=== PATIENT | female | born 1960 | race Two or more races ===

== ENCOUNTER 2024-11-03 11:15 | Emergency (ER) | payer OTHER ==
[~2024-11-03] VITALS: Ht 165.1 cm; Wt 70.8 kg
[2024-11-03] MEDS ORDERED: ORPHENADRINE CITRATE 30 MG/ML AMPUL IM ONE (13:00)
[2024-11-03] MEDS ORDERED: KETOROLAC TROMETHAMINE 60 MG VIAL IM ONE (13:00)
[2024-11-03] MEDS ORDERED: NORFLEX100MG PO (14:00)
== END 2024-11-03 14:44 | disposition home or self-care (01) ==
LOC: ER 14:27
DX: R07.81 Pleurodynia (principal); E11.9 Type 2 diabetes mellitus without complications